=== PATIENT | male | born 1980 | race Caucasian/White ===

== ENCOUNTER 2016-12-05 09:49 | Emergency (ER) | payer OTHER ==
[~2016-12-05] VITALS: Ht 170.2 cm; Wt 78.2 kg
[2016-12-05 09:50] VITALS: BP 125/64
--- NOTE | 2016-12-05 09:59 | NUR ---
Patient ambulated to bed 4 with family. RN evaluating patient at bedside.
--- NOTE | 2016-12-05 10:00 | NUR ---
Dr. Smith evaluating patient at bedside.
--- NOTE | 2016-12-05 10:02 | NUR ---
36M BIB FAMILY C/O TESTICULAR PAIN X LAST NIGHT; PT STATES FEELS " MASS" BETWEEN TESTICLES; DENIES TRAUMA OR INJURY TO SITE; STATES " I DON'T KNOW WHERE IT COULD HAVE COME FROM"; PT C/O "IRRITATION" TO MID TESTICLES D/T "MASS", NON-RADIATING, 02/21 AT THIS TIME; PT DENIES URINARY PAIN, DISCHARGE OR HEMATURIA AT THIS TIME; A&OX4, PERRL, BL LUNG SOUNDS CLEAR, RR EVEN/UNLABORED, SKIN IS WARM/DRY/INTACT AT THIS TIME; PT DENIES N/V/D AT THIS TIME; PT RESTING IN BED W/ HOB ELEVATED AND IN LOWEST POSITION; POSITIONED FOR COMFORT; HX: DEPRESSSION, AGRESSIVE DISORDER, ANXIETY; ER MD MADE AWARE OF STATUS. WILL CONTINUE TO MONITOR.
--- NOTE | 2016-12-05 10:31 | NUR ---
PT TAKEN TO US VIA W/C ACCOMPANIED BY GA TORRES& MAURICIO CARR.
--- NOTE | 2016-12-05 10:31 | NUR ---
Patient taken to US via wheelchair by tech.
[2016-12-05 11:55] VITALS: BP 126/75
--- NOTE | 2016-12-05 11:55 | NUR ---
Patient discharged with v/s stable. PT STATES HR AT DISCHARGE IS PT'S BASELINE AND NORMAL FOR PT. Written and verbal after care instructions given and explained. Patient verbalized understanding. Ambulatory WITH STEADY GAIT. All questions addressed prior to discharge. Advised to follow up with PMD.
== END 2016-12-05 11:55 | disposition home or self-care (01) ==
LOC: MED 09:49
DX: K40.90 Unilateral inguinal hernia, without obstruction or gangrene, not specified as recurrent (principal); F32.9 Major depressive disorder, single episode, unspecified; F41.9 Anxiety disorder, unspecified

== ENCOUNTER 2016-12-06 21:25 | Emergency (ER) | payer OTHER ==
[~2016-12-06] VITALS: Ht 170.2 cm; Wt 78.0 kg
[2016-12-06 21:37] VITALS: BP 128/70
--- NOTE | 2016-12-07 01:42 | NUR ---
PATIENT LEFT WITHOUT BEING SEEN BY DR. GALLO. NO FURTHER CARE PROVIDED FOR PATIENT.
== END 2016-12-07 01:42 | disposition left against medical advice (07) ==
LOC: MED 21:25
DX: R10.9 Unspecified abdominal pain (principal); Z53.21 Procedure and treatment not carried out due to patient leaving prior to being seen by health care provider